=== PATIENT | female | born 1995 | race Caucasian/White ===

== ENCOUNTER → 2021-08-07 | Outpatient (CLI) | payer BC, OTHER ==
[~2021-08-07] MED LIST: MACROBID 100 M100 MG PO; PRENATAL VITAM1 EAC8 PO
== END ==
LOC: KOH-I 10:09
DX: R11.2 Nausea with vomiting, unspecified (principal); R19.7 Diarrhea, unspecified; R10.84 Generalized abdominal pain
CPT/HCPCS: 76700

== ENCOUNTER 2022-01-03 10:17 | Emergency (ER) | payer OTHER ==
[2022-01-03 11:27] LABS: HEMOGLOBIN 15.1 gm/dl (12.3-15.3); RED BLOOD COUNT 4.94 M/UL (4.00-5.10); WHITE BLOOD COUNT 7.5 K/UL (4.5-11.0)
[2022-01-03 12:17] LABS: BUN/CREATININE RATIO 10 (0-10)
[2022-01-03] MEDS ORDERED: MACROBID 100 M100 MG PO (12:47)
== END 2022-01-03 13:15 | disposition home or self-care (01) ==
LOC: ER1 10:17
PROVIDERS: Physician Assistant
DX: O23.41 Unspecified infection of urinary tract in pregnancy, first trimester (principal); N39.0 Urinary tract infection, site not specified; Z3A.00 Weeks of gestation of pregnancy not specified
CPT/HCPCS: 80053; 81001; 84702; 85025; 87077; 87086; 87186; 99284